=== PATIENT | male | born 1950 | race Caucasian/White ===

== ENCOUNTER 2018-02-24 10:08 | Emergency (ER) | payer MEDICARE, OTHER | END 2018-02-24 10:54 | disposition home or self-care (01) | LOC: E/R 10:08 | DX: K94.23 Gastrostomy malfunction (principal); E66.01 Morbid (severe) obesity due to excess calories; E11.9 Type 2 diabetes mellitus without complications; Z79.82 Long term (current) use of aspirin; Z87.891 Personal history of nicotine dependence | CPT/HCPCS: 99282 ==